=== PATIENT | male | born 1960 | race Caucasian/White ===

== ENCOUNTER 2017-05-24 13:01 | Emergency (ER) | payer SELFPAY ==
[~2017-05-24] VITALS: Ht 175.3 cm; Wt 72.6 kg
--- NOTE | 2017-05-24 15:20 | Diagnostic Imaging Report ---
Indication: Reason For Exam: PAIN Technique: 3 views of the right ankle Comparison: None Findings: No acute fractures. No dislocations. There are vascular calcifications. The joint spaces are preserved Impression: Negative
--- NOTE | 2017-05-24 15:38 | Diagnostic Imaging Report ---
Indication: Right foot pain Technique: 3 views right foot Comparison: none Findings: There is questionably irregularity of the articular surface of the head of the fifth proximal phalanx, best appreciated on the oblique view. No other evidence of acute fracture or dislocation. The joint spaces are preserved. There is mild metatarsus adductus and hallux valgus. Impression: Slight irregularity of the articular surface of the head of the fifth proximal phalanx, fracture not excludable. Correlate with clinical findings Other findings as noted Findings discussed by phone with nurse kerri García in the emergency room at the time of interpretation
[2017-05-24] MEDS ORDERED: TRAMADOL HCL50 MG ORAL (16:25)
[2017-05-24] MEDS ORDERED: IBUPROFEN600 MG ORAL (16:25)
[2017-05-24 17:00] VITALS: BP 134/76
--- NOTE | 2017-05-24 23:34 | Emergency Room Report ---
History of Present Illness General Chief Complaint: Lower Extremity Injury Source: Patient (RICKY SAINI) Present Illness HPI The patient is a 57-year-old male presenting for right foot pain. He states that he was walking and tripped 5 days prior. He is now experiencing pain described as a 10 out of 10 dull ache to his toes as well as his ankle. He denies previous injury to these areas. He has not tried any medications. He denies any other injury or symptoms (RICKY SAINI) Allergies: Coded Allergies: No Known Allergies (Unverified , 05/24/17) Patient History Past Medical History: see triage record Pertinent Family History: none Reviewed Nursing Documentation: PMH: Agreed, PSxH: Agreed (RICKY SAINI) Nursing Documentation-PMH Past Medical History: No Stated History (RICKY SAINI) Review of Systems All Other Systems: negative except mentioned in HPI (RICKY SAINI) Physical Exam Vital Signs Date Time Temp Pulse Resp B/P (MAP) Pulse Ox O2 Delivery O2 Flow Rate FiO2 05/24/17 14:03 97.5 65 16 135/86 95 Room Air Sp02 EP Interpretation: reviewed, normal General Appearance: no apparent distress, alert, GCS 15, non-toxic Head: normocephalic, atraumatic Eyes: bilateral eye normal inspection, bilateral eye PERRL Musculoskeletal: back normal, gait/station normal, normal range of motion, no calf tenderness, tender - R 5th digit Neurologic: alert, oriented x3, responsive, motor strength/tone normal, sensory intact, speech normal Psychiatric: judgement/insight normal, memory normal, mood/affect normal, no suicidal/homicidal ideation Skin: abrasions - 3rd digit Lymphatic: no adenopathy (RICKY SAINI) Procedures Splinting Splinting #1: Consent: Verbal Location: R foot Pre-Made Type: cast shoe Splint: cast shoe Pre-Proc Neuro Vasc Exam: normal Post-Proc Neuro Vasc Exam: normal Patient Tolerated: Well Complications: None Splinting #2: Consent: Verbal Location: splint elian tape 4th and 5th digit Hand-Made Type: tape Pre-Proc Neuro Vasc Exam: normal Post-Proc Neuro Vasc Exam: normal Patient Tolerated: Well Complications: None (RICKY SAINI) Medical Decision Making PA Attestation Dr. Douglass is my supervising physician. Patient management was discussed with my supervising physician (RICKY SAINI) Diagnostic Impression: Primary Impression: Toe fracture, right Qualified Codes: S92.504A - Nondisplaced unspecified fracture of right lesser toe(s), initial encounter for closed fracture ER Course The patient is a 57-year-old male presenting for right foot pain. Ddx considered include but not limited to sprain/strain, fracture, contusion PE: NAD Right ankle: No deformity. No ecchymosis. No edema. Full active range of motion intact. There is tenderness to palpation as well as some ecchymosis to the fifth digit. Abrasion to the third digit X-ray of the right ankle unremarkable X-ray of the right foot reveals a fracture of the fifth proximal phalanx. Nondisplaced. Patient is given cast shoe and elian tape placed. Is given a prescription for pain medication he will be discharged home (RICKY SAINI) ER Course I have reviewed the PA's interpretation of Xray results and agree with findings. (Anel Douglass M.D.) Other X-Ray Diagnostic Results Other X-Ray Diagnostic Results #1: X-Ray ordered: R ankle # of Views/Limited Vs Complete: 3 View Indication: Pain EP Interpretation: Yes PA Xray: Interpretation reviewed, by supervising MD, and agrees with findings. Interpretation: no dislocation, no soft tissue swelling, no fractures Impression: No acute disease Electronically Signed by: Ricky Saini PA-C Other X-Ray Diagnostic Results #2: X-Ray ordered: R foot # of Views/Limited Vs Complete: 3 View Indication: Pain EP Interpretation: Yes PA Xray: Interpretation reviewed, by supervising MD, and agrees with findings. Interpretation: no dislocation, other - fracture to R5th Proximal phalanx Impression: Other - fracture Electronically Signed by: Ricky Saini PA-C ([email or web address]) Last Vital Signs Date Time Temp Pulse Resp B/P (MAP) Pulse Ox O2 Delivery O2 Flow Rate FiO2 05/24/17 17:00 74 16 134/76 98 Room Air 05/24/17 14:03 97.5 Status: improved ([email or web address].) Disposition: HOME, SELF-CARE Condition: Improved Scripts Tramadol Hcl* (ULTRAM*) 50 Mg Tablet 50 MG ORAL Q6H Y for For Pain, #10 TAB 0 Refills Prov: RICKY SAINI P.A. 05/24/17 Ibuprofen* (MOTRIN*) 600 Mg Tablet 600 MG ORAL Q8H Y for For Pain, #30 TAB 0 Refills Prov: RICKY SAINI P.A. 05/24/17 Patient Instructions: Toe Fracture Additional Instructions: I discussed my findings with the patient. All questions and concerns have been answered. Treatment and medication compliance have been addressed. I advised the patient that they need to follow up with PMD in 3-5 days. Return to ED if symptoms worsen, new symptoms arise, or if needed for any reason. Patient verbalized understanding of discharge instructions. RICKY SAINI May 24, 2017 23:34 Anel Douglass M.D. May 28, 2017 14:02
== END 2017-05-24 17:00 | disposition home or self-care (01) ==
LOC: EMR 15:38
DX: S92.504A Nondisplaced unspecified fracture of right lesser toe(s), initial encounter for closed fracture (principal); W01.0XXA Fall on same level from slipping, tripping and stumbling without subsequent striking against object, initial encounter; Y92.9 Unspecified place or not applicable
CPT/HCPCS: 99284